=== PATIENT | female | born 1995 | race Caucasian/White ===

== ENCOUNTER 2020-10-15 11:45 | Outpatient (RCR) | payer OTHER, SELFPAY ==
[2020-10-09 14:51] LABS: Beta HCG Quantitative 214.09 mIU/ML
== END 2021-01-07 23:59 | disposition home or self-care (01) ==
LOC: ANHLAB 11:45
PROVIDERS: Visit Provider Obstetrics & Gynecology
DX: O20.0 Threatened abortion (principal); Z3A.00 Weeks of gestation of pregnancy not specified
CPT/HCPCS: 36415; 84702; 85461

== ENCOUNTER 2020-10-17 16:19 | Outpatient (RCR) | payer OTHER, SELFPAY | END 2021-01-15 23:59 | disposition home or self-care (01) | LOC: ANHLAB 16:19 | PROVIDERS: PCP Obstetrics & Gynecology; Visit Provider Obstetrics & Gynecology | DX: O20.0 Threatened abortion (principal); Z3A.00 Weeks of gestation of pregnancy not specified | CPT/HCPCS: 36415; 84702 ==